=== PATIENT | female | born 1990 | race Caucasian/White ===

== ENCOUNTER 2020-03-31 16:05 | Emergency (ER) | payer OTHER ==
[~2020-03-31] VITALS: Ht 157.5 cm; Wt 60.0 kg
[~2020-03-31 16:05] MED LIST: HYDR-4383 PO
--- NOTE | 2020-03-31 16:16 | NUR ---
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
[2020-03-31 22:13] VITALS: BP 123/82
== END 2020-03-31 17:45 | disposition home or self-care (01) ==
LOC: ER 16:05
DX: S93.492A Sprain of other ligament of left ankle, initial encounter (principal); Z72.89 Other problems related to lifestyle; Z79.899 Other long term (current) drug therapy; X50.1XXA Overexertion from prolonged static or awkward postures, initial encounter; Y93.89 Activity, other specified; Y92.89 Other specified places as the place of occurrence of the external cause; Y99.8 Other external cause status
CPT/HCPCS: 73630; 99283